=== PATIENT | male | born 1955 | race Caucasian/White ===

== ENCOUNTER 2021-11-12 20:23 | Emergency (ER) | payer MEDICARE ==
[2021-11-12] MEDS ORDERED: SODIUM CHLORIDE 0.9% 1,000 ML IV ONE (21:01)
[2021-11-12 21:37] LABS: Lactic Acid, Venous 1.1 mmol/L (0.7-2.0)
[2021-11-12 21:39] LABS: ALT 22 U/L (4-49); AST 32 U/L (17-59); African American GFR (CKD) >90 (>60 ml/min/1.73 sqM); Albumin 4.6 g/dL (3.5-5.0); Alcohol <10 mg/dL; Alkaline Phosphatase 70 U/L (38-126); Anion Gap 8 mmol/L; Blood Urea Nitrogen 16 mg/dL (9-20); Calcium 9.7 mg/dL (8.4-10.2); Carbon Dioxide 24 mmol/L (22-30); Chloride 101 mmol/L (98-107); Glucose 109 mg/dL (74-99); Non-African American GFR(CKD) 82 (>60 ml/min/1.73 sqM); Potassium 4.1 mmol/L (3.5-5.1); Sodium 133 mmol/L (137-145); Total Bilirubin 0.9 mg/dL (0.2-1.3); Total Protein 7.3 g/dL (6.3-8.2)
[2021-11-12 21:45] LABS: Basophils % (A) 0 %; Eosinophils # (A) 0.1 k/uL (0-0.7); Eosinophils % (A) 1 %; HCT 41.8 % (39.0-53.0); HGB 14.1 gm/dL (13.0-17.5); Lymphocytes # (A) 1.2 k/uL (1.0-4.8); Lymphocytes % (A) 15 %; MCHC 33.7 g/dL (31.0-37.0); MCV 97.8 fL (80.0-100.0); Mean Platelet Volume 6.8; Monocytes # (A) 0.5 k/uL (0-1.0); Monocytes % (A) 6 %; Neutrophils # (A) 5.7 k/uL (1.3-7.7); Neutrophils % (A) 74 %; Platelet Count 200 k/uL (150-450); RBC 4.27 m/uL (4.30-5.90); RDW 12.6 % (11.5-15.5); WBC 7.7 k/uL (3.8-10.6)
[2021-11-12 21:46] LABS: Appearance,Urine Clear (Clear); Bilirubin,Urine Negative (Negative); Blood,Urine Trace (Negative); Color,Urine Light Yellow; Glucose,Urine (UA) Negative (Negative); Ketones,Urine Negative (Negative); Leukocyte Esterase,Urine Negative (Negative); Nitrite,Urine Negative (Negative); Protein,Urine Negative (Negative); RBC,Urine 1 /hpf (0-5); Specific Gravity,Urine 1.009 (1.001-1.035); Urobilinogen,Urine <2.0 mg/dL (<2.0); WBC,Urine 2 /hpf (0-5)
[2021-11-12 21:54] LABS: Amphetamine Screen,Urine Not Detected (NotDetected); Barbiturate Screen,Urine Not Detected (NotDetected); Benzodiazepines Screen,Urine Not Detected (NotDetected); Cocaine Screen,Urine Not Detected (NotDetected); Methadone Screen, Urine Not Detected (NotDetected); Opiate Screen,Urine Not Detected (NotDetected); Oxycodone Screen, Urine Not Detected (NotDetected); Phencyclidine Screen,Urine Not Detected (NotDetected); Tricyclic Antidepressant,Urine Not Detected (NotDetected); Urn Cannabinoid Scrn Not Detected (NotDetected)
[2021-11-12 21:58] LABS: INR 0.9 (<1.2); Prothrombin Time 10.3 sec (9.0-12.0)
[2021-11-12 21:59] LABS: Partial Thromboplastin Time 23.3 sec (22.0-30.0)
--- NOTE | 2021-11-12 22:11 | CT ---
EXAMINATION TYPE: CT brain wo con DATE OF EXAM: 11/12/2021 COMPARISON: 09/06/2010 HISTORY: Altered mental status. CT DLP: 1279.8 mGycm Automated exposure control for dose reduction was used. Images obtained of the brain without contrast. Ventricles have normal size. There is no mass effect or midline shift. There is no sign of intracrani al hemorrhage. There is no evidence of cerebral edema. Calvarium is intact. There is normal aeration of the mastoid sinuses. Skull base is intact. IMPRESSION: Negative unenhanced head CT scan. No change.
--- NOTE | 2021-11-12 22:12 | XR ---
EXAMINATION TYPE: XR chest 2V DATE OF EXAM: 11/12/2021 COMPARISON: 09/06/2010 HISTORY: Acute mental status TECHNIQUE: FINDINGS: Heart and mediastinum are normal. Lungs are clear. Diaphragm is normal. Bony thorax appears normal. There are chest leads. IMPRESSION: Normal chest. No change.
--- NOTE | 2021-11-12 22:28 | CT ---
EXAMINATION TYPE: CT angio head neck DATE OF EXAM: 11/12/2021 COMPARISON: None HISTORY: Altered mental status. CT DLP: 512.8 mGycm Automated exposure control for dose reduction was used. CONTRAST: Performed with IV Contrast, patient injected with 65ml mL of Isovue 370. Images obtained from the aortic arch to the vertex of the brain with IV contrast. There are Three-D p ostprocessed images. There is normal branching pattern of the great vessels on the aortic arch. There is bilateral arteria l flow in the subclavian arteries. There is arterial flow in the common internal and external carotid arteries. There is arterial flow in both vertebral arteries. There is calcified plaque formation at the carotid artery bifurcation on the left side with lumen narrowing 25%. No evidence of any signific ant narrowing on the right side. There is arterial flow in the vertebrobasilar artery system. There i s diminutive basilar artery. There is no evidence of carotid or vertebral artery aneurysm or dissecti on. The posterior cerebral arteries appear to fill significantly through the posterior communicating destiny geovanna. There is arterial flow in the anterior middle and posterior cerebral arteries. I see no evidenc e of intracranial aneurysm or neovascularity. There is no mass effect. There is no evidence of hemody namic stenosis. There is normal enhancement of the venous sinuses. IMPRESSION: Mild plaque at the left carotid artery bifurcation. No evidence of hemodynamic stenosis in the neck. Negative CT angiogram of the brain.
--- NOTE | 2021-11-12 23:05 | ED ---
General Adult HPI - General Chief complaint: Neuro Symptoms/Deficit Stated complaint: Confusion Time Seen by Provider: 11/12/21 20:40 Source: patient, RN notes reviewed, old records reviewed Mode of arrival: ambulatory - History of Present Illness Initial comments: Patient presents emergency department over concern for an episode of confusion earlier today. He states that twice today he "cannot remember something that happened." His grandchildren came over earlier in the day in the afternoon, and when his talked to him about it, he initially cannot remember the recall later on. He then states that an approximate 4 PM, he cannot remember negative passwords on his laptop, but later he was able to remember. Patient has just returned from [facility] where he was at [place] over the weekend. Denies any drug use. Denies any trauma or accidents. Is not on blood thinners. Denies passing out. Has no other acute complaints at this time including Weakness, numbness, chest pain, shortness breath. Patient is back to his baseline at this time. He is concerned over possible stroke or other etiology for his current symptoms. Presents for further evaluation. Is currently not confused. - Related Data Home Medications Medication Instructions Recorded Confirmed ALPRAZolam [Xanax] 0.25 mg PO DAILY PRN 11/12/21 11/12/21 Atorvastatin [Lipitor] 10 mg PO HS 11/12/21 11/12/21 Omeprazole 20 mg PO HS 11/12/21 11/12/21 amLODIPine [Norvasc] 2.5 mg PO DAILY 11/12/21 11/12/21 Allergies Allergy/AdvReac Type Severity Reaction Status Date / Time No Known Allergies Allergy Verified 11/12/21 21:52 Review of Systems ROS Statement: Those systems with pertinent positive or pertinent negative responses have been documented in the HPI. Review of Systems: CONST: Denies fever EYES: Denies blurry vision ENT: Denies nasal congestion C/V: Denies Chest pain RESP: Denies shortness of breath GI: Denies abdominal pain : Denies dysuria SKIN: Denies rash. MSK: Denies joint pain. NEURO: Denies headache ROS Other: All systems not noted in ROS Statement are negative. Past Medical History Past Medical History: Hypertension History of Any Multi-Drug Resistant Organisms: None Reported Past Surgical History: No Surgical Hx Reported Past Psychological History: No Psychological Hx Reported Smoking Status: Never smoker Past Alcohol Use History: Occasional Past Drug Use History: None Reported General Exam - General Exam Comments Initial Comments: General: Appears in no acute distress. HEAD: Normal with no signs of head trauma. EYES: PERRLA, EOMI, conjunctiva normal, no discharge. ENT: Hearing grossly intact, normal oropharynx. RESPIRATORY: Clear breath sounds bilaterally. No wheezes, rales, or rhonchi. C/V: Regular rate and rhythm. S1 and S2 auscultated, no edema, peripheral pulses 2+ and intact throughout ABD: Abd is soft, nontender, nondistended EXT: Normal range of motion, no obvious deformity SKIN: No rashes or lesions observed on exposed skin. NEURO: Alert and oriented x 4. Cranial nerves II-XII intact. No focal sensory or strength deficits. Patient ambulated without difficulty. Cerebellar function is intact as evident by normal finger nose testing and [id number] testing. NIH is 0. GCS is 15. Course Vital Signs 11/12/21 11/12/21 11/12/21 20:31 21:29 23:15 Temperature 98.7 F 98.6 F Pulse Rate 83 73 76 Respiratory 18 16 18 Rate Blood Pressure 153/85 145/82 142/75 O2 Sat by Pulse 95 95 94 L Oximetry Medical Decision Making - Medical Decision Making Based on the patient's presentation and physical exam, I'm concerned for possible neurological etiology for his confusion earlier. Other Etiology. Therefore Broad Workup Will Be Obtained for the Confusion That Is since Resolved. Has No Other Symptoms at This Time. Patient was in agreement with this plan. He'll be given a 1 L fluid bolus. EKG shows no signs of acute ischemia. Chest x-ray is negative for acute cardiopulmonary process. Brain CT revealed no acute intracranial process. CT angiogram revealed a mild plaque in left carotid artery bifurcation but otherwise no evidence of acute process. Negative study. Laboratory studies remarkable for a negative troponin. Ammonia is within normal limits. Urinalysis unremarkable. UDS and alcohol levels are negative. Remainder the labs are within normal limits. On reevaluation, patient's neurological status remains normal. No new onset confusion. Patient never had any other neurological deficits other than brief confusion episodes earlier. I did discuss at length with him his normal workup, as well as CT imaging. We discussed discharge home versus admission, and he would like to go home with follow-up with his PCP. I believe this is r easonable. Strict return precautions will be given to the patient. He was in agreement this plan. I instructed the patient to follow up with their PCP in the next 3 days. I explained that the patient should return to the emergency department if they experience any worsening symptoms. Strict return precautions were discussed with the patient. The patient expressed understanding of these instructions. I answered all questions that the patient had. The patient was discharged home in good condition with their prescriptions and follow up information. - Lab Data Result diagrams: 11/12/21 21:05 11/12/21 21:05 Lab Results 11/12/21 11/12/21 11/12/21 Range/Units 21:05 21:05 21:05 WBC 7.7 (3.8-10.6) k/uL RBC 4.27 L (4.30-5.90) m/uL Hgb 14.1 (13.0-17.5) gm/dL Hct 41.8 (39.0-53.0) % MCV 97.8 (80.0-100.0) fL MCH 33.0 (25.0-35.0) pg MCHC 33.7 (31.0-37.0) g/dL RDW 12.6 (11.5-15.5) % Plt Count 200 (150-450) k/uL MPV 6.8 Neutrophils % 74 % Lymphocytes % 15 % Monocytes % 6 % Eosinophils % 1 % Basophils % 0 % Neutrophils # 5.7 (1.3-7.7) k/uL Lymphocytes # 1.2 (1.0-4.8) k/uL Monocytes # 0.5 (0-1.0) k/uL Eosinophils # 0.1 (0-0.7) k/uL Basophils # 0.0 (0-0.2) k/uL PT 10.3 (9.0-12.0) sec INR 0.9 (<1.2) APTT 23.3 (22.0-30.0) sec Sodium 133 L (137-145) mmol/L Potassium 4.1 (3.5-5.1) mmol/L Chloride 101 (98-107) mmol/L Carbon Dioxide 24 (22-30) mmol/L Anion Gap 8 mmol/L BUN 16 (9-20) mg/dL Creatinine 0.95 (0.66-1.25) mg/dL Est GFR (CKD-EPI)AfAm >90 (>60 ml/min/1.73 sqM) Est GFR (CKD-EPI)NonAf 82 (>60 ml/min/1.73 sqM) Glucose 109 H (74-99) mg/dL Plasma Lactic Acid Addy (0.7-2.0) mmol/L Calcium 9.7 (8.4-10.2) mg/dL Total Bilirubin 0.9 (0.2-1.3) mg/dL AST 32 (17-59) U/L ALT 22 (4-49) U/L Alkaline Phosphatase 70 (38-126) U/L Ammonia (<30) umol/L Troponin I (0.000-0.034) ng/mL Total Protein 7.3 (6.3-8.2) g/dL Albumin 4.6 (3.5-5.0) g/dL Urine Color Urine Appearance (Clear) Urine pH (5.0-8.0) Ur Specific [place] (1.001-1.035) Urine Protein (Negative) Urine Glucose (UA) (Negative) Urine Ketones (Negative) Urine Blood (Negative) Urine Nitrite (Negative) Urine Bilirubin (Negative) Urine Urobilinogen (<2.0) mg/dL Ur Leukocyte Esterase (Negative) Urine RBC (0-5) /hpf Urine WBC (0-5) /hpf Urine Opiates Screen (NotDetected) Ur Oxycodone Screen (NotDetected) Urine Methadone Screen (NotDetected) Ur Propoxyphene Screen (NotDetected) Ur Barbiturates Screen (NotDetected) U Tricyclic Antidepress (NotDetected) Ur Phencyclidine Scrn (NotDetected) Ur Amphetamines Screen (NotDetected) U Methamphetamines Scrn (NotDetected) U Benzodiazepines Scrn (NotDetected) Urine Cocaine Screen (NotDetected) U Marijuana (THC) Screen (NotDetected) Serum Alcohol <10 mg/dL 11/12/21 11/12/21 11/12/21 Range/Units 21:05 21:05 21:31 WBC (3.8-10.6) k/uL RBC (4.30-5.90) m/uL Hgb (13.0-17.5) gm/dL Hct (39.0-53.0) % MCV (80.0-100.0) fL MCH (25.0-35.0) pg MCHC (31.0-37.0) g/dL RDW (11.5-15.5) % Plt Count (150-450) k/uL MPV Neutrophils % % Lymphocytes % % Monocytes % % Eosinophils % % Basophils % % Neutrophils # (1.3-7.7) k/uL Lymphocytes # (1.0-4.8) k/uL Monocytes # (0-1.0) k/uL Eosinophils # (0-0.7) k/uL Basophils # (0-0.2) k/uL PT (9.0-12.0) sec INR (<1.2) APTT (22.0-30.0) sec Sodium (137-145) mmol/L Potassium (3.5-5.1) mmol/L Chloride (98-107) mmol/L Carbon Dioxide (22-30) mmol/L Anion Gap mmol/L BUN (9-20) mg/dL Creatinine (0.66-1.25) mg/dL Est GFR (CKD-EPI)AfAm (>60 ml/min/1.73 sqM) Est GFR (CKD-EPI)NonAf (>60 ml/min/1.73 sqM) Glucose (74-99) mg/dL Plasma Lactic Acid Addy 1.1 (0.7-2.0) mmol/L Calcium (8.4-10.2) mg/dL Total Bilirubin (0.2-1.3) mg/dL AST (17-59) U/L ALT (4-49) U/L Alkaline Phosphatase (38-126) U/L Ammonia 20 (<30) umol/L Troponin I <0.012 (0.000-0.034) ng/mL Total Protein (6.3-8.2) g/dL Albumin (3.5-5.0) g/dL Urine Color Light Yellow Urine Appearance Clear (Clear) Urine pH 7.0 (5.0-8.0) Ur Specific [place] 1.009 (1.001-1.035) Urine Protein Negative (Negative) Urine Glucose (UA) Negative (Negative) Urine Ketones Negative (Negative) Urine Blood Trace H (Negative) Urine Nitrite Negative (Negative) Urine Bilirubin Negative (Negative) Urine Urobilinogen <2.0 (<2.0) mg/dL Ur Leukocyte Esterase Negative (Negative) Urine RBC 1 (0-5) /hpf Urine WBC 2 (0-5) /hpf Urine Opiates Screen Not Detected (NotDetected) Ur Oxycodone Screen Not Detected (NotDetected) Urine Methadone Screen Not Detected (NotDetected) Ur Propoxyphene Screen Not Detected (NotDetected) Ur Barbiturates Screen Not Detected (NotDetected) U Tricyclic Antidepress Not Detected (NotDetected) Ur Phencyclidine Scrn Not Detected (NotDetected) Ur Amphetamines Screen Not Detected (NotDetected) U Methamphetamines Scrn Not Detected (NotDetected) U Benzodiazepines Scrn Not Detected (NotDetected) Urine Cocaine Screen Not Detected (NotDetected) U Marijuana (THC) Screen Not Detected (NotDetected) Serum Alcohol mg/dL - EKG Data -: EKG Interpreted by Me EKG Comments: 12-lead Electrocardiogram Interpretation Note EKG was reviewed and interpreted by myself. 12-lead ECG performed at 2121 is interpreted by me as revealing normal sinus rhythm at a rate of 80 beats per minute. [place] is normal. CT interval is 161 ms, QRS duration is 104 ms, QTc is 406 ms.. There were no ST or T wave abnormalities to suggest myocardial ischemia or injury. R wave progression across the precordium was satisfactory. By my interpretation this EKG is non-diagnostic for acute ischemia. Disposition Clinical Impression: Confusion state Disposition: HOME SELF-CARE Condition: Good Is patient prescribed a controlled substance at d/c from ED?: No Referrals: Jeremi Cuevas MD [Primary Care Provider] - 1-2 days
[2021-11-12 23:16] VITALS: BP 142/75; PULSE 76; RESP 18; TEMP 98.6
== END 2021-11-12 23:16 | disposition home or self-care (01) ==
LOC: EC 20:23
DX: R41.0 Disorientation, unspecified (principal); I10 Essential (primary) hypertension; Z79.899 Other long term (current) drug therapy
CPT/HCPCS: 36415; 93005; 80053; 82140; 83605; 84484; 85025; 85610; 85730; 81001; 80306; 71046; 70496; 70450; 70498; 99285; 96360; G0480; Q9967; 80320

== ENCOUNTER 2021-12-17 11:38 | Emergency (ER) | payer MEDICARE ==
[2021-12-17 11:49] VITALS: RESP 18; TEMP 98.1
--- NOTE | 2021-12-17 13:19 | ED ---
General Adult HPI - General Chief complaint: Dizziness Stated complaint: Lightheaded/Dizziness Time Seen by Provider: 12/17/21 13:00 Source: patient, family Mode of arrival: wheelchair Limitations: no limitations - History of Present Illness Initial comments: 66-year-old male with past medical history of hypertension and hyperlipidemia to the emergency department after he had an episode of lightheadedness. States he was stepping out of the shower just prior to hospital arrival when he felt uneasy area and he felt as if he was going to lose his balance. He denies room spinning sensation. No associated chest pain or shortness of breath. No heada ches or visual changes. Symptoms lasted only 5 minutes and spontaneously resolved. He denies any weakness in his extremities. Patient did not eat breakfast. No recent medication changes. He did have an episode on the 12 of November where he came back from [facility] and did not remember some details of the day. Due to the amnesia he had a CT of his head as well as CT angiography. Patient opted to go home. He followed up with his primary care doctor and had carotids done. He was sent to a neurologist. Dr. Meza performed an MRI and MRA of his brain. They received the information that there is a mild irregularity to his carotids and he was scheduled for a CT of his carotids. Due to this recent scare the patient states that he is more sensitive about his symptoms. No other alleviating, precipitating or modifying factors - Related Data Home Medications Medication Instructions Recorded Confirmed ALPRAZolam [Xanax] 0.25 mg PO DAILY PRN 11/12/21 11/12/21 Atorvastatin [Lipitor] 10 mg PO HS 11/12/21 11/12/21 Omeprazole 20 mg PO HS 11/12/21 11/12/21 amLODIPine [Norvasc] 2.5 mg PO DAILY 11/12/21 11/12/21 Allergies Allergy/AdvReac Type Severity Reaction Status Date / Time No Known Allergies Allergy Verified 12/17/21 11:49 Review of Systems ROS Statement: Those systems with pertinent positive or pertinent negative responses have been documented in the HPI. ROS Other: All systems not noted in ROS Statement are negative. Past Medical History Past Medical History: GERD/Reflux, Hyperlipidemia, Hypertension History of Any Multi-Drug Resistant Organisms: None Reported Past Surgical History: Cholecystectomy Past Psychological History: No Psychological Hx Reported Smoking Status: Never smoker Past Alcohol Use History: Occasional Past Drug Use History: None Reported General Exam Limitations: no limitations General appearance: alert, in no apparent distress Head exam: Present: atraumatic, normocephalic, normal inspection Eye exam: Present: normal appearance, PERRL, EOMI. Absent: scleral icterus, conjunctival injection, periorbital swelling ENT exam: Present: normal exam, mucous membranes moist Neck exam: Present: normal inspection. Absent: tenderness, meningismus, lymphadenopathy Respiratory exam: Present: normal lung sounds bilaterally. Absent: respiratory distress, wheezes, rales, rhonchi, stridor Cardiovascular Exam: Present: regular rate, normal rhythm, normal heart sounds. Absent: systolic murmur, diastolic murmur, rubs, gallop, clicks GI/Abdominal exam: Present: soft, normal bowel sounds. Absent: distended, tenderness, guarding, rebound, rigid Extremities exam: Present: normal inspection, full ROM, normal capillary refill. Absent: tenderness, pedal edema, joint swelling, calf tenderness Back exam: Present: normal inspection Neurological exam: Present: alert, oriented X3, CN II-XII intact Psychiatric exam: Present: normal affect, normal mood Skin exam: Present: warm, dry, intact, normal color. Absent: rash Course Vital Signs 12/17/21 12/17/21 11:43 13:36 Temperature 98.1 F Pulse Rate 51 L Pulse Rate [ 82 Sitting] Pulse Rate [ 96 Standing] Pulse Rate [ 72 Supine] Respiratory 18 Rate Blood Pressure 154/78 Blood Pressure 153/92 [Sitting] Blood Pressure 136/88 [Standing] Blood Pressure 145/82 [Supine] O2 Sat by Pulse 98 Oximetry EKG Findings - EKG Comments: EKG Findings:: EKG demonstrates ventricular rate of 73. NC interval 156. QRS 110. QTC of 411. No acute ST segment elevations or depressions. Frequent PVCs Medical Decision Making - Medical Decision Making Upon arrival patient is placed into room 5. A thorough history and physical exam was performed. Orthostatics are obtained. Laboratory studies are conducted and reviewed. I did reevaluate the patient continues to remain symptom-free. I did discuss whether we should repeat a CT however since the patient has had an MRI and MRA that the CT is warranted at this time. The patient agreed. Requested that he follow-up with his neurologist for further testing and to return to the emergency room for any new or worsening symptoms. Patient agreed to this and was discharged home in stable condition - Lab Data Result diagrams: 12/17/21 13:27 12/17/21 13:27 Lab Results 12/17/21 12/17/21 12/17/21 Range/Units 13:27 13:27 13:27 WBC 7.4 (3.8-10.6) k/uL RBC 4.75 (4.30-5.90) m/uL Hgb 15.1 (13.0-17.5) gm/dL Hct 46.7 (39.0-53.0) % MCV 98.2 (80.0-100.0) fL MCH 31.8 (25.0-35.0) pg MCHC 32.3 (31.0-37.0) g/dL RDW 12.3 (11.5-15.5) % Plt Count 222 (150-450) k/uL MPV 6.9 Neutrophils % 79 % Lymphocytes % 12 % Monocytes % 5 % Eosinophils % 1 % Basophils % 1 % Neutrophils # 5.8 (1.3-7.7) k/uL Lymphocytes # 0.9 L (1.0-4.8) k/uL Monocytes # 0.3 (0-1.0) k/uL Eosinophils # 0.1 (0-0.7) k/uL Basophils # 0.0 (0-0.2) k/uL Sodium 136 L (137-145) mmol/L Potassium 4.7 (3.5-5.1) mmol/L Chloride 104 (98-107) mmol/L Carbon Dioxide 23 (22-30) mmol/L Anion Gap 9 mmol/L BUN 17 (9-20) mg/dL Creatinine 1.02 (0.66-1.25) mg/dL Est GFR (CKD-EPI)AfAm 87 (>60 ml/min/1.73 sqM) Est GFR (CKD-EPI)NonAf 75 (>60 ml/min/1.73 sqM) Glucose 98 (74-99) mg/dL Calcium 9.7 (8.4-10.2) mg/dL Total Bilirubin 0.9 (0.2-1.3) mg/dL AST 33 (17-59) U/L ALT 22 (4-49) U/L Alkaline Phosphatase 59 (38-126) U/L Troponin I <0.012 (0.000-0.034) ng/mL Total Protein 7.9 (6.3-8.2) g/dL Albumin 4.9 (3.5-5.0) g/dL Disposition Clinical Impression: Pre-syncope Disposition: HOME SELF-CARE Condition: Stable Instructions (If sedation given, give patient instructions): Dizziness (ED) Additional Instructions: Please follow-up with Dr. Meza as directed. Return to the emergency room for any new or worsening symptoms. Increase fluid intake. Is patient prescribed a controlled substance at d/c from ED?: No Referrals: Jeremi Cuevas MD [Primary Care Provider] - 1-2 days Sruthi Meza MD [Family Provider] - 1-2 days Time of Disposition: 14:19
[2021-12-17 13:31] LABS: Basophils % (A) 1 %; Eosinophils # (A) 0.1 k/uL (0-0.7); Eosinophils % (A) 1 %; HCT 46.7 % (39.0-53.0); HGB 15.1 gm/dL (13.0-17.5); Lymphocytes # (A) 0.9 k/uL (1.0-4.8); Lymphocytes % (A) 12 %; MCH 31.8 pg (25.0-35.0); MCHC 32.3 g/dL (31.0-37.0); MCV 98.2 fL (80.0-100.0); Mean Platelet Volume 6.9; Monocytes # (A) 0.3 k/uL (0-1.0); Monocytes % (A) 5 %; Neutrophils # (A) 5.8 k/uL (1.3-7.7); Neutrophils % (A) 79 %; Platelet Count 222 k/uL (150-450); RBC 4.75 m/uL (4.30-5.90); RDW 12.3 % (11.5-15.5); WBC 7.4 k/uL (3.8-10.6)
[2021-12-17 13:37] VITALS: BP 145/82; PULSE 72
[2021-12-17 13:39] LABS: Albumin 4.9 g/dL (3.5-5.0); Calcium 9.7 mg/dL (8.4-10.2); Potassium 4.7 mmol/L (3.5-5.1); Total Bilirubin 0.9 mg/dL (0.2-1.3); Total Protein 7.9 g/dL (6.3-8.2)
== END 2021-12-17 14:34 | disposition home or self-care (01) ==
LOC: EC 11:38
DX: R55 Syncope and collapse (principal); I10 Essential (primary) hypertension; E78.5 Hyperlipidemia, unspecified; K21.9 Gastro-esophageal reflux disease without esophagitis; Z79.899 Other long term (current) drug therapy
CPT/HCPCS: 36415; 80053; 84484; 85025; 93005; 99284

== ENCOUNTER → 2021-12-25 | Outpatient (CLI) | payer MEDICARE ==
--- NOTE | 2021-12-25 10:38 | CT ---
EXAMINATION TYPE: CT angio neck DATE OF EXAM: 12/25/2021 HISTORY: TIA, CAROTID DISSECTION COMPARISON: CT dated 11/12/2021 CT DLP: 379.0 mGycm. Automated Exposure Control for Dose Reduction was Utilized. TECHNIQUE: CTA scan of the neck is performed with IV Contrast, patient injected with 65ML mL of Isov ue 370, axial images are obtained, coronal and sagittal reformatted images are reviewed. 3D reconstru cted images are created on an independent workstation and reviewed. FINDINGS: Carotid/Vascular Structures: Scattered arterial atherosclerotic calcifications most evident involving the proximal portion of the left internal carotid artery. Bilateral -type booth manager with small basil ar artery. Otherwise normal caliber and enhancement of the neck arteries without significant stenosis , occlusion, dissection, aneurysm or AV malformation. Other: Degenerative changes of the cervical spine. IMPRESSION: Scattered mild arterial atherosclerotic calcifications as described above. Otherwise unremarkable CTA of the neck arteries.
== END | disposition home or self-care (01) ==
LOC: RADCTMAIN 07:52
PROVIDERS: ATTEND Psychiatry & Neurology Neurology
DX: I65.22 Occlusion and stenosis of left carotid artery (principal)
CPT/HCPCS: 70498; Q9967

== ENCOUNTER 2024-02-23 09:11 | Inpatient (IN) | payer MEDICARE ==
--- NOTE | 2024-02-23 09:42 | ED ---
General Adult HPI - General Chief complaint: Chest Pain Stated complaint: Chest Pains Time Seen by Provider: 02/23/24 09:15 Source: patient, RN notes reviewed, old records reviewed Mode of arrival: ambulatory Limitations: no limitations - History of Present Illness Initial comments: This is a 68-year-old male who presents to the emergency department with a past medical history significant for high blood pressure and high cholesterol. Patient states he was in the store when he started having some left lateral chest pain patient states he was also mildly short of breath and clammy. Patient states he had to drive with the windows open because he was feeling so hot. Patient did take a nitroglycerin and at this time is not experiencing any chest discomfort. Patient states he had no heart history and he has no family history of heart disease and is not a smoker or diabetic. Patient denies any recent fever chills or cough patient denies any nausea vomiting or diarrhea. Patient has abdominal pain - Related Data Home Medications Medication Instructions Recorded Confirmed ALPRAZolam [Xanax] 0.25 mg PO DAILY PRN 11/12/21 02/23/24 Atorvastatin [Lipitor] 10 mg PO HS 11/12/21 02/23/24 Omeprazole 20 mg PO HS 11/12/21 02/23/24 amLODIPine [Norvasc] 2.5 mg PO DAILY 11/12/21 02/23/24 Aspirin EC [Ecotrin Low Dose] 81 mg PO DAILY 02/23/24 02/23/24 Allergies Allergy/AdvReac Type Severity Reaction Status Date / Time No Known Allergies Allergy Verified 02/23/24 09:18 Review of Systems ROS Statement: Those systems with pertinent positive or pertinent negative responses have been documented in the HPI. ROS Other: All systems not noted in ROS Statement are negative. Past Medical History Past Medical History: GERD/Reflux, Hyperlipidemia, Hypertension History of Any Multi-Drug Resistant Organisms: None Reported Past Surgical History: Cholecystectomy Past Psychological History: No Psychological Hx Reported Smoking Status: Never smoker Past Alcohol Use History: Occasional Past Drug Use History: None Reported General Exam - General Exam Comments Initial Comments: GENERAL: Patient is well-developed and well-nourished. Patient is nontoxic and well- hydrated and is in no acute distress. ENT: Neck is soft and supple. No significant lymphadenopathy is noted. Oropharynx is clear. Moist mucous membranes. Neck has full range of motion without eliciting any pain. EYES: The sclera were anicteric and conjunctiva were pink and moist. Extraocular movements were intact and pupils were equal round and reactive to light. Eyelids were unremarkable. PULMONARY: Unlabored respirations. Good breath sounds bilaterally. No audible rales rhonchi or wheezing was noted. CARDIOVASCULAR: There is a regular rate and rhythm without any murmurs gallops or rubs. ABDOMEN: Soft and nontender with normal bowel sounds. No palpable organomegaly was noted. There is no palpable pulsatile mass. SKIN: Skin is clear with no lesions or rashes and otherwise unremarkable. NEUROLOGIC: Patient is alert and oriented x3. Cranial nerves II through XII are grossly intact. Motor and sensory are also intact. Normal speech, volume and content. Symmetrical smile. MUSCULOSKELETAL: Normal extremities with adequate strength and full range of motion. No lower extremity swelling or edema. No calf tenderness. LYMPHATICS: No significant lymphadenopathy is noted PSYCHIATRIC: Normal psychiatric evaluation. Limitations: no limitations Course Vital Signs 02/23/24 09:15 Temperature 98 F Pulse Rate 72 Respiratory 18 Rate Blood Pressure 173/90 O2 Sat by Pulse 98 Oximetry Medical Decision Making - Medical Decision Making EKG is interpreted by myself read EKG shows a sinus rhythm at 66 bpm parables 168 QRS is 102 QT interval 374 QTc is 387. Patient's EKG shows no ST segment elevation or depression Was pt. sent in by a medical professional or institution (SHAYY Stewart, ALGOLOGIST, urgent care, hospital, or penitentiary...) When possible be specific @ -No Did you speak to anyone other than the patient for history (EMS, parent, family, police, friend...)? What history was obtained from this source @ -No Did you review nursing and triage notes (agree or disagree)? Why? @ -I reviewed and agree with nursing and triage notes Were old charts reviewed (outside hosp., previous admission, EMS record, old E KG, old radiological studies, urgent care reports/EKG's, penitentiary records)? Report findings @ -No old charts were reviewed Differential Diagnosis (chest pain, altered mental status, abdominal pain women, abdominal pain men, vaginal bleeding, weakness, fever, dyspnea, syncope, headache, dizziness, GI bleed, back pain, seizure, CVA, palpatations, mental health, musculoskeletal)? @ -Differential Chest Pain: Stable Angina, Unstable Angina, STEMI, NSTEMI Aortic Dissection, Pneumothorax, Musculoskeletal, Esophageal Spasm GERD, Cholecystitis, Pancreatitis, Zoster, this is not meant to be an all-inclusive list. EKG interpreted by me (3pts min.). @ -As above X-rays interpreted by me (1pt min.). @ -Chest x-ray shows no acute abnormality CT interpreted by me (1pt min.). @ -None done U/S interpreted by me (1pt. min.). @ -None done What testing was considered but not performed or refused? (CT, X-rays, U/S, labs)? Why? @ -None What meds were considered but not given or refused? Why? @ -None Did you discuss the management of the patient with other professionals (professionals i.e. , PA, ALGOLOGIST, lab, RT, psych nurse, social media executive, chief school finance officer, teacher, airport operations officer, home health care case manager)? Give summary @ -I spoke with Dr. Rivera agreed to admit the patient admit the patient Was smoking cessation discussed for >3mins.? @ -No Was critical care preformed (if so, how long)? @ -No Were there social determinants of health that impacted care today? How? (Homelessness, low income, unemployed, alcoholism, drug addiction, transportation, low edu. Level, literacy, decrease access to med. care, longterm, rehab)? @ -No Was there de-escalation of care discussed even if they declined (Discuss DNR or withdrawal of care, Hospice)? DNR status @ -No What co-morbidities impacted this encounter? (DM, HTN, Smoking, COPD, CAD, Cancer, CVA, ARF, Chemo, Hep., AIDS, mental health diagnosis, sleep apnea, morbid obesity)? @ -None Was patient admitted / discharged? Hospital course, mention meds given and route, prescriptions, significant lab abnormalities, going to OR and other pertinent info. @ -Patient came in chest pain-free. Give the patient an aspirin and Nitropaste. I went back into reevaluate the patient after all the lab work and x-rays were done patient was not having any pain at this time lab work was normal. Spoke with Dr. Rivera and he agreed to admit the patient admit the patient wrote admitting orders and consult to cardiology Undiagnosed new problem with uncertain prognosis? @ -No Drug Therapy requiring intensive monitoring for toxicity (Heparin, Nitro, Insulin, Cardizem)? @ -No Were any procedures done? @ -No Diagnosis/symptom? @ -Chest pain Acute, or Chronic, or Acute on Chronic? @ -Acute Uncomplicated (without systemic symptoms) or Complicated (systemic symptoms)? @ -Complicated Side effects of treatment? @ -No Exacerbation, Progression, or Severe Exacerbation? @ -No Poses a threat to life or bodily function? How? (Chest pain, USA, ME, pneumonia, PE, COPD, DKA, ARF, appy, cholecystitis, CVA, Diverticulitis, Homicidal, Suicidal, threat to staff... and all critical care pts) @ -Yes this could lead to ME and endorgan dysfunction - Lab Data Result diagrams: 02/23/24 09:51 02/23/24 09:51 Lab Results 02/23/24 02/23/24 02/23/24 Range/Units 09:51 09:51 09:51 WBC 3.3 L (3.8-10.6) k/uL RBC 4.44 (4.30-5.90) m/uL Hgb 14.5 (13.0-17.5) gm/dL Hct 43.8 (39.0-53.0) % MCV 98.6 (80.0-100.0) fL MCH 32.6 (25.0-35.0) pg MCHC 33.1 (31.0-37.0) g/dL RDW 12.4 (11.5-15.5) % Plt Count 214 (150-450) k/uL MPV 6.9 Neutrophils % 63 % Lymphocytes % 24 % Monocytes % 6 % Eosinophils % 3 % Basophils % 1 % Neutrophils # 2.1 (1.3-7.7) k/uL Lymphocytes # 0.8 L (1.0-4.8) k/uL Monocytes # 0.2 (0-1.0) k/uL Eosinophils # 0.1 (0-0.7) k/uL Basophils # 0.0 (0-0.2) k/uL PT 9.8 L (10.0-12.5) sec INR 0.9 (<1.2) APTT 22.5 (22.0-30.0) sec Sodium 135 L (137-145) mmol/L Potassium 5.3 H (3.5-5.1) mmol/L Chloride 104 (98-107) mmol/L Carbon Dioxide 26 (22-30) mmol/L Anion Gap 5 mmol/L BUN 20 (9-20) mg/dL Creatinine 0.84 (0.66-1.25) mg/dL Est GFR (CKD-EPI)AfAm >90 (>60 ml/min/1.73 sqM) Est GFR (CKD-EPI)NonAf 89 (>60 ml/min/1.73 sqM) Glucose 104 H (74-99) mg/dL Calcium 9.7 (8.4-10.2) mg/dL Magnesium 2.1 (1.6-2.3) mg/dL Total Bilirubin 0.9 (0.2-1.3) mg/dL AST 28 (17-59) U/L ALT 19 (4-49) U/L Alkaline Phosphatase 72 (38-126) U/L Troponin I (0.000-0.034) ng/mL Total Protein 7.4 (6.3-8.2) g/dL Albumin 4.7 (3.5-5.0) g/dL 02/23/24 Range/Units 09:51 WBC (3.8-10.6) k/uL RBC (4.30-5.90) m/uL Hgb (13.0-17.5) gm/dL Hct (39.0-53.0) % MCV (80.0-100.0) fL MCH (25.0-35.0) pg MCHC (31.0-37.0) g/dL RDW (11.5-15.5) % Plt Count (150-450) k/uL MPV Neutrophils % % Lymphocytes % % Monocytes % % Eosinophils % % Basophils % % Neutrophils # (1.3-7.7) k/uL Lymphocytes # (1.0-4.8) k/uL Monocytes # (0-1.0) k/uL Eosinophils # (0-0.7) k/uL Basophils # (0-0.2) k/uL PT (10.0-12.5) sec INR (<1.2) APTT (22.0-30.0) sec Sodium (137-145) mmol/L Potassium (3.5-5.1) mmol/L Chloride (98-107) mmol/L Carbon Dioxide (22-30) mmol/L Anion Gap mmol/L BUN (9-20) mg/dL Creatinine (0.66-1.25) mg/dL Est GFR (CKD-EPI)AfAm (>60 ml/min/1.73 sqM) Est GFR (CKD-EPI)NonAf (>60 ml/min/1.73 sqM) Glucose (74-99) mg/dL Calcium (8.4-10.2) mg/dL Magnesium (1.6-2.3) mg/dL Total Bilirubin (0.2-1.3) mg/dL AST (17-59) U/L ALT (4-49) U/L Alkaline Phosphatase (38-126) U/L Troponin I <0.012 (0.000-0.034) ng/mL Total Protein (6.3-8.2) g/dL Albumin (3.5-5.0) g/dL Disposition Clinical Impression: Chest pain Disposition: ADMITTED IP TO THIS [facility] Referrals: Jeremi Cuevas MD [Primary Care Provider] - 1-2 days Time of Disposition: 11:20
[2024-02-23 10:11] LABS: INR 0.9 (<1.2); Partial Thromboplastin Time 22.5 sec (22.0-30.0); Prothrombin Time 9.8 sec (10.0-12.5)
[2024-02-23 10:14] LABS: Basophils % (A) 1 %; Eosinophils # (A) 0.1 k/uL (0-0.7); Eosinophils % (A) 3 %; HCT 43.8 % (39.0-53.0); HGB 14.5 gm/dL (13.0-17.5); Lymphocytes # (A) 0.8 k/uL (1.0-4.8); Lymphocytes % (A) 24 %; MCH 32.6 pg (25.0-35.0); MCHC 33.1 g/dL (31.0-37.0); MCV 98.6 fL (80.0-100.0); Mean Platelet Volume 6.9; Monocytes # (A) 0.2 k/uL (0-1.0); Monocytes % (A) 6 %; Neutrophils # (A) 2.1 k/uL (1.3-7.7); Neutrophils % (A) 63 %; Platelet Count 214 k/uL (150-450); RBC 4.44 m/uL (4.30-5.90); RDW 12.4 % (11.5-15.5); WBC 3.3 k/uL (3.8-10.6)
[2024-02-23] MEDS: NITROGLYCERIN OINT 1 INCH/GM PACKET TOPICAL STA (10:18)
[2024-02-23] MEDS: ASPIRIN 81 MG PO STA (10:18)
--- NOTE | 2024-02-23 10:31 | XR ---
EXAMINATION TYPE: XR chest 2V DATE OF EXAM: 02/23/2024 10:25 AM CLINICAL INDICATION:Male, 68 years old with history of Chest Pain; [facility] COMPARISON: Chest radiographs from 11/12/2021 TECHNIQUE: XR chest 2V Frontal and lateral views of the chest. FINDINGS: Lungs/Pleura: There is flattening of the diaphragm with increased lucency of the lungs. No evidence o f pneumothorax, pleural effusion or focal consolidation. Pulmonary vascularity: Unremarkable. Heart/mediastinum: Cardiomediastinal silhouette is unremarkable. Musculoskeletal: No acute osseous pathology. IMPRESSION: 1. No acute cardiopulmonary disease process. 2. COPD changes.
[2024-02-23 10:32] LABS: ALT 19 U/L (4-49); AST 28 U/L (17-59); African American GFR (CKD) >90 (>60 ml/min/1.73 sqM); Albumin 4.7 g/dL (3.5-5.0); Alkaline Phosphatase 72 U/L (38-126); Anion Gap 5 mmol/L; Blood Urea Nitrogen 20 mg/dL (9-20); Calcium 9.7 mg/dL (8.4-10.2); Carbon Dioxide 26 mmol/L (22-30); Chloride 104 mmol/L (98-107); Glucose 104 mg/dL (74-99); Magnesium 2.1 mg/dL (1.6-2.3); Non-African American GFR(CKD) 89 (>60 ml/min/1.73 sqM); Potassium 5.3 mmol/L (3.5-5.1); Sodium 135 mmol/L (137-145); Total Bilirubin 0.9 mg/dL (0.2-1.3); Total Protein 7.4 g/dL (6.3-8.2)
[2024-02-23] MEDS ORDERED: NITROGLYCERIN SL TABS 0.4 MG TAB SUBLINGUAL PRN (11:20)
[2024-02-23] MEDS: NITROGLYCERIN OINT 1 INCH/GM PACKET TOPICAL SCH (12:40)
[2024-02-23] MEDS: METOPROLOL TARTRATE 25 MG TAB PO SCH (14:26)
[2024-02-23] MEDS ORDERED: ONDANSETRON 4 MG/2 ML VIAL IVP PRN (15:35)
[2024-02-23] MEDS ORDERED: LACTULOSE 20 GM/30 ML CUP PO PRN (15:35)
[2024-02-23] MEDS ORDERED: ACETAMINOPHEN TAB 325 MG TAB PO PRN (15:35)
[2024-02-23] MEDS ORDERED: CALCIUM CARBONATE 500 MG CHEWABLE PO PRN (15:35)
--- NOTE | 2024-02-23 15:36 | P.HPIM ---
History of Present Illness H&P Date: 02/23/24 Chief Complaint: Near syncope This is a pleasant 68-year-old patient, follows with Dr. Cuevas. Chronic stable medical conditions include hypertension, hyperlipidemia, GERD and some insomnia. A year or 2 ago patient had exerted himself too much landing himself in the ER. At that time a stress test was negative. But he was told he may have possible angina. And has had nitroglycerin since then and seen Dr. Mare Ackerman from cardiology. Today patient had gone to the store and open the freezer section when he suddenly felt very lightheaded. Went down to the car took his nitro and nearly passed out. While lying in the bed in the ER he felt a slight discomfort in the lower sternal area. ,found his heart rate and in the monitor to be up to 140s. Came back to normal after that. Advised patient's good shape rather active. Review of systems: GEN.: None EYES: None HEENT: None NECK: None RESPIRATORY: None CARDIOVASCULAR: [As above GASTROINTESTINAL: None GENITOURINARY: None MUSCULOSKELETAL: None LYMPHATICS: None HEMATOLOGICAL: None PSYCHIATRY: None NEUROLOGICAL: None Social history: . Retired. From [employer]. No smoking. Alcohol occasionally Physical examination: VITAL SIGNS: 98.6, 60, 18, 10/11/1986, 98% room air GENERAL: BMI 24.4, reclining bed awake comfortable. EYES: Pupils equal. Conjunctiva jacinto l. HEENT: External appearance of nose and ears normal, oral cavity grossly normal. NECK: JVD not raised; masses not palpable. HEART: First and second heart sounds are normal; no edema. LUNGS: Respiratory rate normal; clear to auscultation. ABDOMEN: Soft, nontender, liver spleen not palpable, no masses palpable. PSYCH: Alert and oriented x3; mood and affect jacinto l. MUSCULOSKELETAL:No Clubbing/cyanosis;muscles-grossly intact NEUROLOGICAL: Cranial nerves grossly intact; no facial asymmetry, power and sensation grossly intact. LYMPHATICS: No lymph nodes palpable in the axilla and neck INVESTIGATIONS, reviewed in the clinical context: White count 3.3 hemoglobin 14.5 platelets 2.4 sodium 135 potassium 5.3 creati nine 0.84 Troponin I x 2 negative EKG tracing personally reviewed by me-normal sinus rhythm. Nonspecific T wave changes. Chest x-ray film personally reviewed by me-some hyperinflation Assessment plan: -Patient presented episode of sudden lightheadedness. He took nitroglycerin and he felt he nearly passed out. That could be from possible hypotension at the time. In the ER he had noted his heart rate to go up with slight discomfort. This could be paroxysmal arrhythmia. Patient had a negative stress test about a year or 2 ago. Telemetry. Possible stress test. Serial cardiac enzymes. -Essential hypertension Amlodipine 2.5 mg a day -GERD Omeprazole 20 mg nightly -Hyperlipidemia Lipitor 10 mg nightly -BPH currently not on any medications -Abnormal PSA 3.7 being monitored outpatient Care was discussed with the patient. Questions answered Cardiology consulted Past Medical History Past Medical History: GERD/Reflux, Hyperlipidemia, Hypertension History of Any Multi-Drug Resistant Organisms: None Reported Past Surgical History: Cholecystectomy Past Psychological History: No Psychological Hx Reported Smoking Status: Never smoker Past Alcohol Use History: Occasional Past Drug Use History: None Reported Medications and Allergies Home Medications Medication Instructions Recorded Confirmed Type ALPRAZolam [Xanax] 0.25 mg PO DAILY PRN 11/12/21 02/23/24 History Atorvastatin [Lipitor] 10 mg PO HS 11/12/21 02/23/24 History Omeprazole 20 mg PO HS 11/12/21 02/23/24 History amLODIPine [Norvasc] 2.5 mg PO DAILY 11/12/21 02/23/24 History Aspirin EC [Ecotrin Low Dose] 81 mg PO DAILY 02/23/24 02/23/24 History Allergies Allergy/AdvReac Type Severity Reaction Status Date / Time No Known Allergies Allergy Verified 02/23/24 09:18 Physical Exam Vitals: Vital Signs Temp Pulse Resp BP Pulse Ox 02/23/24 12:00 98.6 F 60 18 126/87 98 02/23/24 09:15 98 F 72 18 173/90 98 Intake and Output 02/23/24 02/23/24 02/23/24 06:59 14:59 22:59 Other: # Voids 1 Weight 81.647 kg Results CBC & Chem 7: 02/23/24 09:51 02/23/24 09:51 Labs: Abnormal Lab Results - Last 24 Hours (Table) 02/23/24 02/23/24 02/23/24 Range/Units 09:51 09:51 09:51 WBC 3.3 L (3.8-10.6) k/uL Lymphocytes # 0.8 L (1.0-4.8) k/uL PT 9.8 L (10.0-12.5) sec Sodium 135 L (137-145) mmol/L Potassium 5.3 H (3.5-5.1) mmol/L Glucose 104 H (74-99) mg/dL
--- NOTE | 2024-02-23 22:16 | P.CRDCN ---
History of Present Illness Consult date: 02/23/24 Chief complaint: chest discomfort History of present illness: She is the patient is a pleasant 68-year-old gentleman with a past medical history significant for hypertension and dyslipidemia who sees Dr. Ackerman on a regular basis. We consulted to see the patient because an episode of chest discomfort and also an episode of dizziness and lightheadedness. He was in his usual state of health until earlier today when he was doing some shopping and he felt that he did have left arm discomfort with no chest pain or chest discomfort but he felt also dizzy with no presyncope and no syncope. He decided to come for further investigation. During his hospital stay in the emergency department he felt also dizzy this time with no chest pain or chest discomfort. During that time he did have a short episode of atrial tachycardia versus atrial fi brillation. Lasted only for about 6-7 beats and subsequently he came back to normal sinus mechanism and since then he has been maintaining normal sinus mechanism. He underwent further investigation including another EKG showed sinus mechanism and 3 sets of troponin came in to be unremarkable and chest x- ray did not show any acute abnormalities. No history of coronary artery disease or congestive heart failure or cardiac arrhythmia but he does have hypertension and dyslipidemia and he is on medications for both. He is not an active smoker. He stated that he underwent a stress test in 2012 and he was informed that the stress test was unremarkable. Examination is remarkable for stable vital signs with regular rate and rhythm and soft systolic murmur and clear breathing sounds bilaterally no edema was noted Assessment Atypical chest discomfort/left arm discomfort An episode of atrial tachycardia versus atrial fibrillation of very short duration associated with warm feeling Multiple comorbid conditions including hypertension and dyslipidemia Plan Acute coronary event was ruled out Rule out obstructive coronary artery disease. Obtain a stress test Obtain an echocardiogram with Doppler Monitor the patient for any more episodes of cardiac arrhythmia Start the patient on small dose of beta-adithya Follow-up with the patient Past Medical History Past Medical History: GERD/Reflux, Hyperlipidemia, Hypertension History of Any Multi-Drug Resistant Organisms: None Reported Past Surgical History: Cholecystectomy Past Psychological History: No Psychological Hx Reported Smoking Status: Never smoker Past Alcohol Use History: Occasional Past Drug Use History: None Reported Medications and Allergies Home Medications Medication Instructions Recorded Confirmed Type ALPRAZolam [Xanax] 0.25 mg PO DAILY PRN 11/12/21 02/23/24 History Atorvastatin [Lipitor] 10 mg PO HS 11/12/21 02/23/24 History Omeprazole 20 mg PO HS 11/12/21 02/23/24 History amLODIPine [Norvasc] 2.5 mg PO DAILY 11/12/21 02/23/24 History Aspirin EC [Ecotrin Low Dose] 81 mg PO DAILY 02/23/24 02/23/24 History Allergies Allergy/AdvReac Type Severity Reaction Status Date / Time No Known Allergies Allergy Verified 02/23/24 09:18 Physical Exam Vitals: Vital Signs Temp Pulse Pulse Resp BP BP Pulse Ox 02/23/24 16:00 97.3 F L 55 L 16 150/90 98 02/23/24 12:00 98.6 F 60 18 126/87 98 02/23/24 09:15 98 F 72 18 173/90 98 Intake and Output 02/23/24 02/23/24 02/23/24 06:59 14:59 22:59 Other: # Voids 1 Weight 81.647 kg Results 02/23/24 09:51 02/23/24 09:51 Cardiac Enzymes 02/23/24 02/23/24 02/23/24 Range/Units 09:51 09:51 12:24 AST 28 (17-59) U/L Troponin I <0.012 <0.012 (0.000-0.034) ng/mL 02/23/24 Range/Units 15:38 AST (17-59) U/L Troponin I <0.012 (0.000-0.034) ng/mL Coagulation 02/23/24 Range/Units 09:51 PT 9.8 L (10.0-12.5) sec APTT 22.5 (22.0-30.0) sec CBC 02/23/24 Range/Units 09:51 WBC 3.3 L (3.8-10.6) k/uL RBC 4.44 (4.30-5.90) m/uL Hgb 14.5 (13.0-17.5) gm/dL Hct 43.8 (39.0-53.0) % Plt Count 214 (150-450) k/uL Comprehensive Metabolic Panel 02/23/24 Range/Units 09:51 Sodium 135 L (137-145) mmol/L Potassium 5.3 H (3.5-5.1) mmol/L Chloride 104 (98-107) mmol/L Carbon Dioxide 26 (22-30) mmol/L BUN 20 (9-20) mg/dL Creatinine 0.84 (0.66-1.25) mg/dL Glucose 104 H (74-99) mg/dL Calcium 9.7 (8.4-10.2) mg/dL AST 28 (17-59) U/L ALT 19 (4-49) U/L Alkaline Phosphatase 72 (38-126) U/L Total Protein 7.4 (6.3-8.2) g/dL Albumin 4.7 (3.5-5.0) g/dL Current Medications Generic Name Dose Route Start Last Admin Trade Name Freq PRN Reason Stop Dose Admin Acetaminophen 650 mg 02/23/24 15:35 Acetaminophen Tab 325 Mg Tab PO Q6HR PRN Mild Pain or Fever > 100.5 Alprazolam 0.25 mg 02/23/24 11:21 Alprazolam 0.25 Mg Tab PO DAILY PRN Anxiety Amlodipine Besylate 2.5 mg 02/24/24 09:00 Amlodipine 2.5 Mg Tab PO DAILY [facility] Aspirin 325 mg 02/24/24 09:00 Aspirin 325 Mg Tab PO DAILY [facility] Atorvastatin Calcium 10 mg 02/23/24 21:00 Atorvastatin 10 Mg Tab PO HS [facility] Calcium Carbonate/Glycine 1,000 mg 02/23/24 15:35 Calcium Carbonate 500 Mg Chewable PO Q4HR PRN Dyspepsia Lactulose 20 gm 02/23/24 15:35 Lactulose 20 Gm/30 Ml Cup PO DAILY PRN Constipation Melatonin 3 mg 02/23/24 15:35 Melatonin 3 Mg Tablet PO HS PRN Insomnia Metoprolol Tartrate 25 mg 02/23/24 14:00 02/23/24 14:26 Metoprolol Tartrate 25 Mg Tab PO 25 mg BID KIM Administration Nitroglycerin 0.4 mg 02/23/24 11:20 Nitroglycerin Sl Tabs 0.4 Mg Tab SUBLINGUAL Q5M PRN Chest Pain Nitroglycerin 1 inch 02/23/24 12:00 02/23/24 17:19 Nitroglycerin Oint 1 Inch/Gm Packet TOPICAL 1 inch Q6HR KIM Administration Ondansetron HCl 4 mg 02/23/24 15:35 Ondansetron 4 Mg/2 Ml Vial IVP Q8HR PRN Nausea And Vomiting Pantoprazole Sodium 40 mg 02/23/24 21:00 Pantoprazole 40 Mg Tablet PO HS KIM Intake and Output 02/23/24 02/23/24 02/23/24 06:59 14:59 22:59 Other: # Voids 1 Weight 81.647 kg Patient Weight 02/24/24 06:59 Weight 81.647 kg 02/23/24 09:51 02/23/24 09:51
[2024-02-23] MEDS: MELATONIN 3 MG TABLET PO PRN (23:04)
[2024-02-23] MEDS: PANTOPRAZOLE 40 MG TABLET PO SCH (23:04)
[2024-02-23] MEDS: ATORVASTATIN 10 MG TAB PO SCH (23:04)
[2024-02-23] MEDS: ALPRAZolam 0.25 MG TAB PO PRN (23:05)
[2024-02-24 04:18] LABS: HCT 41.4 % (39.0-53.0); HGB 13.3 gm/dL (13.0-17.5); MCH 31.9 pg (25.0-35.0); MCHC 32.2 g/dL (31.0-37.0); MCV 99.1 fL (80.0-100.0); Mean Platelet Volume 7.1; Platelet Count 202 k/uL (150-450); RBC 4.18 m/uL (4.30-5.90); RDW 12.5 % (11.5-15.5); WBC 4.9 k/uL (3.8-10.6)
[2024-02-24 04:33] LABS: ALT 17 U/L (4-49); AST 23 U/L (17-59); African American GFR (CKD) >90 (>60 ml/min/1.73 sqM); Albumin 4.1 g/dL (3.5-5.0); Alkaline Phosphatase 63 U/L (38-126); Anion Gap 5 mmol/L; Blood Urea Nitrogen 17 mg/dL (9-20); Calcium 9.1 mg/dL (8.4-10.2); Carbon Dioxide 21 mmol/L (22-30); Chloride 107 mmol/L (98-107); Glucose 100 mg/dL (74-99); Non-African American GFR(CKD) 87 (>60 ml/min/1.73 sqM); Potassium 4.3 mmol/L (3.5-5.1); Sodium 133 mmol/L (137-145); Total Bilirubin 0.9 mg/dL (0.2-1.3); Total Protein 6.3 g/dL (6.3-8.2)
[2024-02-24 06:10] VITALS: TEMP 97.6
[2024-02-24 08:30] VITALS: RESP 16
[2024-02-24] MEDS: ASPIRIN 81 MG PO SCH (08:35)
[2024-02-24] MEDS: amLODIPine 5 MG TAB PO SCH (08:35)
[2024-02-24] MEDS ORDERED: ASPIRIN 325 MG TAB PO SCH (09:00)
[2024-02-24] MEDS ORDERED: amLODIPine 2.5 MG TAB PO SCH (09:00)
[2024-02-24 09:17] LABS: Chol/HDL Ratio 2.48 Ratio; LDL Cholesterol,Calculated 71.2 mg/dL (0.0-131.0)
--- NOTE | 2024-02-24 10:58 | P.PN ---
Subjective HISTORY OF PRESENT ILLNESS: Patient examined this morning in the emergency room. Patient currently denies any chest pain or pressure. He denies any shortness of breath. Patient currently denies any dizziness or lightheadedness but states he did have the symptoms when he presented to the emergency room. Patient's vital signs are stable. He is scheduled to undergo stress testing today. Patient has not had any arrhythmias noted on telemetry PHYSICAL EXAM: VITAL SIGNS: Reviewed. GENERAL: Well-developed in no acute distress. NECK: Supple. No JVD or thyromegaly LUNGS: Respirations even and unlabored. Lungs essentially clear to auscultation bilaterally. HEART: Regular rate and rhythm. S1 and S2 heard. EXTREMITIES: Normal range of motion. No clubbing or cyanosis. Peripheral pulses intact. No lower extremity edema ASSESSMENT: Chest pain, troponin negative x 3 Palpitations Dizziness/lightheadedness Short episode of atrial tachycardia versus atrial fibrillation Hypertension Hyperlipidemia PLAN: An acute coronary but has been ruled out Discontinue Nitropaste Decrease aspirin to 81 mg daily Continue additional cardiac medications 2D echo has been ordered. Await results Patient to undergo stress echocardiogram today Patient to receive 14-day event monitor prior to discharge If stress testing is negative, the patient will be discharged home today and follow-up on an outpatient basis with Dr. Ackerman Nurse practitioner note has been reviewed by physician. Signing provider agrees with the documented findings, assessment, and plan of care documented by CONSUMER RECRUITER as a scribe. Objective - Vital Signs Vital signs: Vital Signs Temp 97.6 F 02/24/24 06:03 Pulse 52 L 02/24/24 09:13 Resp 16 02/24/24 09:13 BP 155/80 02/24/24 08:26 Pulse Ox 97 02/24/24 08:26 FiO2 Intake & Output 02/23/24 02/24/24 02/24/24 18:59 06:59 18:59 Weight 81.647 kg Other: # Voids 1 - Labs CBC & Chem 7: 02/24/24 03:49 02/24/24 03:49 Labs: Abnormal Lab Results - Last 24 Hours (Table) 02/24/24 02/24/24 Range/Units 03:49 03:49 RBC 4.18 L (4.30-5.90) m/uL Sodium 133 L (137-145) mmol/L Carbon Dioxide 21 L (22-30) mmol/L Glucose 100 H (74-99) mg/dL HDL Cholesterol 61.60 H (40.00-60.00) mg/dL
[2024-02-24 11:45] VITALS: BP 133/74; PULSE 61
--- NOTE | 2024-02-24 14:35 | CA ---
Stress Echo Report Jeremi Stanley Age: 68 Gender: M : 1955 Exam Date: 02/24/2024 09:26 Exam Location: [facility] Ht (in): 72 Wt (lb): 178 Ordering Physician: Jad Merrill MD ([id number]) Referring Physician: JAD MERRILL,, Materials Associate: Katie Gayle RDCS Technologist Procedure CPT: Indication: CP ICD-9 Codes: Rhythm: Patient History: CHEST PAIN, PALPITATIONS, ANGINA, HYPERCHOLESTEROLEMIA, HTN Cardiac Medications: Medications in past 24 hours: Contrast: Stress Results Protocol: Den Total dose(mL): Exercise Duration (min:sec): 6:[address] Depression (mm): Angina Score: Beard Score: METS: 7.7 Resting HR: 68 Resting BP: 160 / 89 Peak HR: 126 Peak BP: 202 / 68 Max Predicted HR: 150 84 % Max Predicted HR Target HR: 128 Double Product: 78037 Stress Summary: BP Response: Reason for Termination: PT REQUESTED TO STOP/UNABLE TO CONTINUE, KNEE PAIN Cardiac Symptoms: SHORTNESS OF BREATH ECG Analysis Resting ECG: Stress ECG: Arrhythmia: Echo Analysis Resting Echo: Peak Echo Analysis: MEASUREMENTS (Male/Female) Normal Values CONCLUSIONS Normal exercise stress echo Dr. Stone Kelly MD (Electronically Signed) Final Date: 24 February 2024 14:34
--- NOTE | 2024-02-24 14:37 | CA ---
Transthoracic Echo Report Name: Jeremi Stanley Age: 68 Gender: M : 1955 Exam Date: 02/24/2024 09:59 Exam Location: [facility] Ht (in): 72 Wt (lb): 178 Ordering Physician: Jad Merrill MD ([id number]) Attending/Referring Phys: Judge'S Clerk Katie Gayle RDCS Procedure CPT: Indications: CP Cardiac Hx: Technical Quality: Fair Contrast 1: Total Dose (mL): Contrast 2: Total Dose (mL): MEASUREMENTS (Male / Female) Normal Values 2D ECHO LV Diastolic Diameter PLAX 5.5 cm 4.2 - 5.9 / 3.9 - 5.3 cm LV Systolic Diameter PLAX 3.7 cm IVS Diastolic Thickness 1.1 cm 0.6 - 1.0 / 0.6 - 0.9 cm LVPW Diastolic Thickness 1.2 cm 0.6 - 1.0 / 0.6 - 0.9 cm LV Relative Wall Thickness 0.4 RV Internal Dim ED PLAX 1.9 cm LA Systolic Diameter LX 4.6 cm 3.0 - 4.0 / 2.7 - 3.8 cm LV Diastolic Volume MOD BP 94.6 cm??? 67 - 155 / 56 - 104 cm??? LV Systolic Volume MOD BP 35.9 cm??? 22 - 58 / 19 - 49 cm??? LV Ejection Fraction MOD BP 62.0 % >= 55 % LV Diastolic Volume MOD 4C 97.8 cm??? LV Systolic Volume MOD 4C 40.7 cm??? LV Ejection Fraction MOD 4C 58.4 % LV Diastolic Length 4C 7.6 cm LV Systolic Length 4C 6.7 cm LV Diastolic Volume MOD 2C 87.4 cm??? LV Systolic Volume MOD 2C 30.9 cm??? LV Ejection Fraction MOD 2C 64.7 % LV Diastolic Length 2C 7.2 cm LV Systolic Length 2C 6.4 cm LA Volume 60.7 cm??? 18 - 58 / 22 - 52 cm??? LA Volume Index 29.9 cm???/m??? 16 - 28 cm???/m??? M-MODE Aortic Root Diameter MM 3.6 cm LA Systolic Diameter MM 3.9 cm LA Ao Ratio MM 1.1 AV Cusp Separation MM 1.8 cm DOPPLER MV Area PHT 2.5 cm??? Mitral E Point Velocity 46.4 cm/s Mitral A Point Velocity 68.5 cm/s Mitral E to A Ratio 0.7 MV Deceleration Time 301.4 ms TR Peak Velocity 215.1 cm/s TR Peak Gradient 18.5 mmHg FINDINGS Left Ventricle Left ventricular ejection fraction is estimated at 55-60 %. Mildly increased septal wall thickness. Left ventricular cavity size normal.no obvious regional wall motion abnormalities. Right Ventricle Right ventricular systolic pressure within normal limits. Normal right ventricular size and function. Right Atrium Normal right atrial size. Left Atrium Mildly increased left atrial diameter. Mildly increased left atrial volume. Mitral Valve Mild prolapse of the posterior mitral valve leaflet. Mild mitral regurgitation. No mitral stenosis. Aortic Valve Trileaflet aortic valve. No aortic valve stenosis or regurgitation. Tricuspid Valve Structurally normal tricuspid valve. Mild tricuspid regurgitation. Pulmonic Valve Structurally normal pulmonic valve. Trace pulmonic regurgitation. Pericardium No pericardial or pleural effusion. Aorta Normal size aortic root and proximal ascending aorta. CONCLUSIONS Normal LV size and systolic function Previewed by: Dr. Stone Kelly MD (Electronically Signed) Final Date: 24 February 2024 14:36
--- NOTE | 2024-02-24 17:44 | P.DS ---
Providers Date of admission: 02/23/24 11:20 Expected date of discharge: 02/24/24 Attending physician: Rudi Rivera Consults: 02/23/24 11:20 Consult Physician Urgent Consulting Provider: [facility] Consult Reason/Comments: Chest pain Do you want consulting provider notified?: Yes Primary care physician: Jeremi [facility] Course: Chief Complaint: Near syncope This is a pleasant 68-year-old patient, follows with Dr. Cuevas. Chronic stable medical conditions include hypertension, hyperlipidemia, GERD and some insomnia. A year or 2 ago patient had exerted himself too much landing himself in the ER. At that time a stress test was negative. But he was told he may have possible angina. And has had nitroglycerin since then and seen Dr. Mare Ackerman from cardiology. Today patient had gone to the store and open the freezer section when he suddenly felt very lightheaded. Went down to the car took his nitro and nearly passed out. While lying in the bed in the ER he felt a slight discomfort in the lower sternal area. ,found his heart rate and in the monitor to be up to 140s. Came back to normal after that. Advised patient's good shape rather active. February 23: Doing well this morning. present. Later this afternoon 2D echo and stress echocardiogram both negative. Patient's amlodipine has been increased to 5 mg a day and Lopressor 25 twice daily was added. I called the patient home discuss his medications. Prescription sent. Social history: . Retired. From animal control. No smoking. Alcohol occasionally Physical examination: VITAL SIGNS: 97.6, 61, 16, 133% 4, 96% room air GENERAL: Comfortable EYES: Pupils equal. Conjunctiva jacinto l. HEENT: External appearance of nose and ears normal, oral cavity grossly normal. NECK: JVD not raised; masses not palpable. HEART: First and second heart sounds are normal; no edema. LUNGS: Respiratory rate normal; clear to auscultation. ABDOMEN: Soft, nontender, liver spleen not palpable, no masses palpable. PSYCH: Alert and oriented x3; mood and affect jacinto l. MUSCULOSKELETAL:No Clubbing/cyanosis;muscles-grossly intact INVESTIGATIONS, reviewed in the clinical context: 2D echocardiogram left 55 to 60%. Stress echocardiogram: Negative February 23: White count 4.9 hemoglobin 13.3 potassium 4.3 creatinine 0.88 White count 3.3 hemoglobin 14.5 platelets 2.4 sodium 135 potassium 5.3 creatinine 0.84 Troponin I x 2 negative EKG tracing personally reviewed by me-normal sinus rhythm. Nonspecific T wave changes. Chest x-ray film personally reviewed by me-some hyperinflation Assessment plan: -Possible paroxysmal arrhythmia -Essential hypertension Amlodipine increased to 5 mg a day. Mg a day Lopressor 25 twice daily added -GERD Omeprazole 20 mg nightly -Hyperlipidemia Lipitor 10 mg nightly -BPH currently not on any medications -Abnormal PSA 3.7 being monitored outpatient Disposition: Home Past Medical History Past Medical History: GERD/Reflux, Hyperlipidemia, Hypertension History of Any Multi-Drug Resistant Organisms: None Reported Past Surgical History: Cholecystectomy Past Psychological History: No Psychological Hx Reported Smoking Status: Never smoker Past Alcohol Use History: Occasional Past Drug Use History: None Reported Plan - Discharge Summary New Discharge Prescriptions: New amLODIPine [Norvasc] 5 mg PO DAILY #30 tab Metoprolol Tartrate [Lopressor] 25 mg PO BID #60 tab Nitroglycerin Sl Tabs [Nitrostat] 0.4 mg SUBLINGUAL Q5M PRN #30 tab PRN Reason: Chest Pain Continue Atorvastatin [Lipitor] 10 mg PO HS Omeprazole 20 mg PO HS ALPRAZolam [Xanax] 0.25 mg PO DAILY PRN PRN Reason: Anxiety Aspirin EC [Ecotrin Low Dose] 81 mg PO DAILY Discontinued amLODIPine [Norvasc] 2.5 mg PO DAILY Discharge Medication List ALPRAZolam [Xanax] 0.25 mg PO DAILY PRN 11/12/21 [History] Atorvastatin [Lipitor] 10 mg PO HS 11/12/21 [History] Omeprazole 20 mg PO HS 11/12/21 [History] Aspirin EC [Ecotrin Low Dose] 81 mg PO DAILY 02/23/24 [History] Metoprolol Tartrate [Lopressor] 25 mg PO BID #60 tab 02/24/24 [Rx] Nitroglycerin Sl Tabs [Nitrostat] 0.4 mg SUBLINGUAL Q5M PRN #30 tab 02/24/24 [Rx] amLODIPine [Norvasc] 5 mg PO DAILY #30 tab 02/24/24 [Rx] Follow up Appointment(s)/Referral(s): Jeremi Cuevas MD [Primary Care Provider] - 1-2 days Alberto Ackerman MD [STAFF PHYSICIAN] - 2 Weeks Patient Instructions/Handouts: Chest Pain (DC)
[2024-02-24] MEDS ORDERED: METOPROLOL TARTRATE 25 MG TAB PO SCH (21:00)
== END 2024-02-24 16:42 | disposition home or self-care (01) | DRG 310 ==
LOC: EC 09:11 → 3SCARD 11:20
PROVIDERS: ADMIT Hospitalist; ATTEND Hospitalist
DX: I47.9 Paroxysmal tachycardia, unspecified (principal); I10 Essential (primary) hypertension; E78.00 Pure hypercholesterolemia, unspecified; K21.9 Gastro-esophageal reflux disease without esophagitis; G47.00 Insomnia, unspecified; N40.0 Benign prostatic hyperplasia without lower urinary tract symptoms; R97.20 Elevated prostate specific antigen [PSA]; Z79.82 Long term (current) use of aspirin; Z79.899 Other long term (current) drug therapy
CPT/HCPCS: 36415; 71046; 80053; 80061; 83735; 84484; 85025; 85027; 85610; 85730; 93005; 93270; 93306; 93351; 99285

== ENCOUNTER → 2024-08-19 | Day surgery (SDC) | payer MEDICARE ==
[~2024-08-19] MED LIST: LIDOCAINE 1% (10MG/ML) FOR IV START INTRADERMA PRN; LIDOCAINE 1% INJ 10MG/ML (20 ML MDV) ONE; PROPOFOL 10 MG/ML 20 ML VIAL IV ONE
[2024-08-19] MEDS: IV FLUID CONTINUATION 1,000 ML IV ONE (13:28)
[2024-08-19 13:36] VITALS: TEMP 97.2
[2024-08-19] MEDS: LACTATED RINGERS 1,000 ML IV SCH (13:39)
--- NOTE | 2024-08-19 14:54 | P.PCN ---
Date of Procedure: 08/19/24 Procedure(s) Performed: BRIEF HISTORY: Patient is a 69-year-old pleasant white male scheduled for an elective colonoscopy as a part of evaluation change in bowel habits and recent episode of acute sigmoid diverticulitis in May of this year for which she was treated antibiotics. PROCEDURE PERFORMED: Colonoscopy. PREOPERATIVE DIAGNOSIS: Change in bowel habits and recent episode of acute sigmoid diverticulitis. IV sedation per Anesthesia. PROCEDURE: After informed consent was obtained, the patient, was brought into the endoscopy unit. IV sedation was administered by Anesthesia under continuous monitoring. Digital rectal examination was normal. Initially the Olympus CF-160 flexible video colonoscope was then inserted in the rectum, gradually advanced into the cecum without any difficulty. Careful examination was performed as the scope was gradually being withdrawn. Ileocecal valve and the appendiceal orifice were visualized and appeared normal. Prep was excellent. Mucosa of the cecum, ascending colon, transverse colon, descending colon, sigmoid colon, and rectum appeared normal. Scattered sigmoid diverticulosis. Retroflexion was performed in the rectum and grade 2 internal hemorrhoids were seen. The patient tolerated the procedure well. IMPRESSION: Normal-appearing colon from rectum to cecum with no evidence of colorectal neoplasia Scattered sigmoid diverticulosis. Grade 2 internal hemorrhoids. RECOMMENDATIONS: Findings of this examination were discussed with the patient as well as his family. He was advised to be on a high-fiber diet take fiber supplements on a regular basis. Recommended repeat screening colonoscopy in 10 years..
[2024-08-19 15:04] VITALS: RESP 16
[2024-08-19 15:13] VITALS: BP 113/63; PULSE 53
== END ==
LOC: ORWHC2ENDO 12:17
PROVIDERS: ATTEND Internal Medicine Gastroenterology
DX: K57.30 Diverticulosis of large intestine without perforation or abscess without bleeding (principal); K64.1 Second degree hemorrhoids; I10 Essential (primary) hypertension; E78.5 Hyperlipidemia, unspecified; K21.9 Gastro-esophageal reflux disease without esophagitis; F17.200 Nicotine dependence, unspecified, uncomplicated; Z79.899 Other long term (current) drug therapy; Z90.49 Acquired absence of other specified parts of digestive tract
CPT/HCPCS: 45378; J2003; J2704

== ENCOUNTER 2024-12-13 12:35 | Emergency (ER) | payer MEDICARE ==
--- NOTE | 2024-12-13 12:40 | ED ---
General Adult HPI - General Chief complaint: Weakness Stated complaint: weakness Time Seen by Provider: 12/13/24 12:39 Source: patient Mode of arrival: wheelchair Limitations: no limitations - History of Present Illness Initial comments: Patient presents to the ED stating that he felt "flushed" "warm" this afternoon, so he checked his blood pressure, and it was elevated at 174/98. Patient states that he checks his blood pressure daily, and this elevated reading is abnormal for him. Patient states that he takes amlodipine and metoprolol for his blood pressure, and he has taking both of those medications today already. Patient states that he continues to feel somewhat warm, but his symptoms seem to be improving currently. Patient denies having any other symptoms or complaints. Patient denies having any pain, fever or chills, headache, focal numbness/weakness/neuro deficit, visual changes, speech difficulty, dizziness, chest pain or pressure, dyspnea, palpitations, dizziness, nausea/vomiting/diaphoresis, abdominal pain, diarrhea, bloody or melanotic stool, dysuria or urinary symptoms, decreased urine output, or any other symptoms or complaints. - Related Data Home Medications Medication Instructions Recorded Confirmed ALPRAZolam [Xanax] 0.25 mg PO HS PRN 11/12/21 08/19/24 Atorvastatin [Lipitor] 10 mg PO HS 11/12/21 08/19/24 Omeprazole 20 mg PO HS 11/12/21 08/19/24 Aspirin EC [Ecotrin Low Dose] 81 mg PO DAILY 02/23/24 08/19/24 Metoprolol Tartrate [Lopressor] 12.5 mg PO DAILY 08/12/24 08/19/24 Previous Rx's Medication Instructions Recorded Nitroglycerin Sl Tabs [Nitrostat] 0.4 mg SUBLINGUAL Q5M PRN #30 tab 02/24/24 amLODIPine [Norvasc] 5 mg PO DAILY #30 tab 02/24/24 Allergies Allergy/AdvReac Type Severity Reaction Status Date / Time No Known Allergies Allergy Verified 12/13/24 12:38 Review of Systems ROS Statement: Those systems with pertinent positive or pertinent negative responses have been documented in the HPI. ROS Other: All systems not noted in ROS Statement are negative. Past Medical History Past Medical History: Chest Pain / Angina, CVA/TIA, GERD/Reflux, Hyperlipidemia, Hypertension Additional Past Medical History / Comment(s): diverticulitis. sinus issues. tested for flutter in chest evaluated by DR Mare Ackerman. told nothing of concern. episode of confusion 2021 evaluated resolved itself and no residuals. sciatica History of Any Multi-Drug Resistant Organisms: None Reported Past Surgical History: Cholecystectomy Additional Past Surgical History / Comment(s): colonoscopy, Past Anesthesia/Blood Transfusion Reactions: No Reported Reaction Past Psychological History: No Psychological Hx Reported Smoking Status: Never smoker - Past Family History Mother Family Medical History: COPD Additional Family Medical History / Comment(s): smokers Father Family Medical History: COPD General Exam Limitations: no limitations General appearance: alert, in no apparent distress Head exam: Present: atraumatic Eye exam: Present: normal appearance, PERRL, EOMI ENT exam: Present: mucous membranes moist Neck exam: Present: other (Trachea is in midline) Respiratory exam: Present: normal lung sounds bilaterally. Absent: respiratory distress, wheezes, rales, rhonchi, stridor Cardiovascular Exam: Present: regular rate, normal rhythm, normal heart sounds, other (Normal radial pulses bilaterally) GI/Abdominal exam: Present: soft. Absent: distended, tenderness, guarding Extremities exam: Absent: pedal edema Neurological exam: Present: alert, oriented X3, CN II-XII intact. Absent: motor sensory deficit Psychiatric exam: Present: normal affect Skin exam: Present: warm, dry, normal color Course Vital Signs 12/13/24 12/13/24 12:36 13:55 Temperature 97.8 F Pulse Rate 62 79 Respiratory 17 20 Rate Blood Pressure 173/101 159/79 O2 Sat by Pulse 99 99 Oximetry - Reevaluation(s) Reevaluation #1: 12/13/24 14:20 Patient states that he no longer feels flushed or warm, and he denies having any symptoms at this time. Patient's blood pressure has now improved to 159/79 on most recent reading. Patient was counseled about elevated blood pressure, and he was clearly explained return and follow-up instructions. He was instructed to keep a close log of his blood pressure readings, and to discuss it with his PCP and/or roustabout. He was instructed to continue taking all of his blood pressure medications as prescribed. He was instructed to follow-up closely with his primary care provider. He he feels comfortable being discharged home at this time. EKG Findings - EKG Comments: EKG Findings:: ED physician interpretation (interpreted by me): Normal sinus rhythm, no ectopy, ventricular rate of 61 bpm, nonspecific intraventricular conduction delay, borderline elevated QRS duration of 121 ms, normal QT interval, normal axis, no ST or T wave abnormality Medical Decision Making - Medical Decision Making Was pt. sent in by a medical professional or institution (, [facility], [employer] WIRE [employer]INGER, urgent care, hospital, or custodial...) When possible be specific @ -No Did you speak to anyone other than the patient for history (EMS, parent, family, police, friend...)? What history was obtained from this source @ -No Did you review nursing and triage notes (agree or disagree)? Why? @ -I reviewed and agree with nursing and triage notes Were old charts reviewed (outside hosp., previous admission, EMS record, old EKG, old radiological studies, urgent care reports/EKG's, custodial records)? Report findings @ -No old charts were reviewed Differential Diagnosis (chest pain, altered mental status, abdominal pain women, abdominal pain men, vaginal bleeding, weakness, fever, dyspnea, syncope, headache, dizziness, GI bleed, back pain, seizure, CVA, palpatations, mental health, musculoskeletal)? @ -Hypertension, flushing, elevated blood pressure reading, medication reaction, medication noncompliance, cardiac disease, renal disease, electrolyte abnormality, hyperglycemia, hypoglycemia, dehydration, this is not meant to be a complete list. EKG interpreted by me (3pts min.). @ -As above X-rays interpreted by me (1pt min.). @ -None done CT interpreted by me (1pt min.). @ -None done U/S interpreted by me (1pt. min.). @ -None done What testing was considered but not performed or refused? (CT, X-rays, U/S, labs)? Why? @ -None What meds were considered but not given or refused? Why? @ -None Did you discuss the management of the patient with other professionals (professionals i.e. SHAYY Stewart, DR[employer] WIRE STRINGER, lab, RT, psych nurse, long term care social worker, children teacher, teacher, medical laboratory technical officer, bilingual patient support caseworker)? Give summary @ -No Was smoking cessation discussed for >3mins.? @ -No Was critical care preformed (if so, how long)? @ -No Were there social determinants of health that impacted care today? How? (Homelessness, low income, unemployed, alcoholism, drug addiction, transportation, low edu. Level, literacy, decrease access to med. care, group home, rehab)? @ -No Was there de-escalation of care discussed even if they declined (Discuss DNR or withdrawal of care, Hospice)? DNR status @ -No What co-morbidities impacted this encounter? (DM, HTN, Smoking, COPD, CAD, Cancer, CVA, ARF, Chemo, Hep., AIDS, mental health diagnosis, sleep apnea, morb id obesity)? @ -Hypertension Was patient admitted / discharged? Hospital course, mention meds given and route, prescriptions, significant lab abnormalities, going to OR and other pertinent info. @ -Patient's blood pressure has improved and his symptoms have resolved without any treatment while in the ED. Patient has not had any concerning symptoms of stroke or [place]. Patient's EKG is fairly unremarkable. Patient's labs are also fairly unremarkable. I do not suspect an emergent medical condition at this time. Will discharge patient home at this time. Patient feels comfortable with this plan. Undiagnosed new problem with uncertain prognosis? @ -No Drug Therapy requiring intensive monitoring for toxicity (Heparin, Nitro, Insulin, Cardizem)? @ -No Were any procedures done? @ -No Diagnosis/symptom? @ -Elevated blood pressure reading, sensation of feeling warm and flushed Acute, or Chronic, or Acute on Chronic? @ -Acute Uncomplicated (without systemic symptoms) or Complicated (systemic symptoms)? @ -Default Side effects of treatment? @ -No Exacerbation, Progression, or Severe Exacerbation? @ -No Poses a threat to life or bodily function? How? (Chest pain, [place], [place], pneumonia, PE, COPD, DKA, ARF, appy, cholecystitis, CVA, Diverticulitis, Homicidal, Suicidal, threat to staff... and all critical care pts) @ -No - Lab Data Result diagrams: 12/13/24 12:45 12/13/24 12:45 Lab Results 12/13/24 12/13/24 Range/Units 12:45 12:45 WBC 4.0 (3.8-10.6) k/uL RBC 4.95 (4.30-5.90) m/uL Hgb 15.7 (13.0-17.5) gm/dL Hct 47.5 (39.0-53.0) % MCV 96.0 (80.0-100.0) fL MCH 31.7 (25.0-35.0) pg MCHC 33.0 (31.0-37.0) g/dL RDW 12.4 (11.5-15.5) % Plt Count 217 (150-450) k/uL MPV 6.8 Neutrophils % 64 % Lymphocytes % 24 % Monocytes % 5 % Eosinophils % 3 % Basophils % 1 % Neutrophils # 2.6 (1.3-7.7) k/uL Lymphocytes # 1.0 (1.0-4.8) k/uL Monocytes # 0.2 (0-1.0) k/uL Eosinophils # 0.1 (0-0.7) k/uL Basophils # 0.0 (0-0.2) k/uL Sodium 134 L (137-145) mmol/L Potassium 4.8 (3.5-5.1) mmol/L Chloride 99 (98-107) mmol/L Carbon Dioxide 20 L (22-30) mmol/L Anion Gap 15 mmol/L BUN 18 (9-20) mg/dL Creatinine 0.94 (0.66-1.25) mg/dL Est GFR (CKD-EPI)AfAm >90 (>60 ml/min/1.73 sqM) Est GFR (CKD-EPI)NonAf 82 (>60 ml/min/1.73 sqM) Glucose 105 H (74-99) mg/dL Calcium 9.8 (8.4-10.2) mg/dL Disposition Clinical Impression: Elevated blood pressure reading, Feeling of warmness Disposition: HOME SELF-CARE Condition: Stable Instructions (If sedation given, give patient instructions): Hypertension (ED) Additional Instructions: Return to the ER immediately should he develop any significant pain, chest pain or pressure, shortness of breath, vomiting, feeling dizzy or faint, numbness or weakness, visual changes, speech difficulty, a significant headache, or new or worsening symptoms. Follow-up closely with your primary care provider. Is patient prescribed a controlled substance at d/c from ED?: No Referrals: Jeremi Cuevas MD [Primary Care Provider] - 1-2 days Time of Disposition: 14:27
[2024-12-13 13:12] LABS: African American GFR (CKD) >90 (>60 ml/min/1.73 sqM); Anion Gap 15 mmol/L; Blood Urea Nitrogen 18 mg/dL (9-20); Calcium 9.8 mg/dL (8.4-10.2); Carbon Dioxide 20 mmol/L (22-30); Chloride 99 mmol/L (98-107); Glucose 105 mg/dL (74-99); Non-African American GFR(CKD) 82 (>60 ml/min/1.73 sqM); Potassium 4.8 mmol/L (3.5-5.1); Sodium 134 mmol/L (137-145)
[2024-12-13 13:26] LABS: Basophils % (A) 1 %; Eosinophils # (A) 0.1 k/uL (0-0.7); Eosinophils % (A) 3 %; HCT 47.5 % (39.0-53.0); HGB 15.7 gm/dL (13.0-17.5); Lymphocytes % (A) 24 %; MCH 31.7 pg (25.0-35.0); Mean Platelet Volume 6.8; Monocytes # (A) 0.2 k/uL (0-1.0); Monocytes % (A) 5 %; Neutrophils # (A) 2.6 k/uL (1.3-7.7); Neutrophils % (A) 64 %; Platelet Count 217 k/uL (150-450); RBC 4.95 m/uL (4.30-5.90); RDW 12.4 % (11.5-15.5)
[2024-12-13 14:31] VITALS: BP 159/79; PULSE 79; RESP 20
[2024-12-13 14:37] VITALS: TEMP 98.2
== END 2024-12-13 14:37 | disposition home or self-care (01) ==
LOC: EC 12:35
DX: I10 Essential (primary) hypertension (principal)
CPT/HCPCS: 36415; 80048; 85025; 93005; 99285